=== PATIENT | female | born 1975 | race Caucasian/White ===

== ENCOUNTER 2020-10-05 15:11 | Emergency (ER) | payer MEDICAID, SELFPAY ==
[2020-10-05 16:08] VITALS: BP 145/87; PULSE 87; RESP 19; TEMP 37.2; O2SAT 100; BMI 32.6
--- NOTE | 2020-10-05 18:40 | PC.NURSE ---
PT ARRIVED TO ROOM. AT 1835
--- NOTE | 2020-10-05 18:43 | ED_ITS ---
HPI - General Adult General: Chief complaint: Medical Clearance Stated complaint: withdrawal from script meds (would not state sx) Time Seen by Provider: 10/05/20 18:40 Source: patient Mode of arrival: ambulatory Limitations: no limitations History of Present Illness: HPI narrative: 45-year-old female states she had a 15-year history of opioid abuse. She states she is on Suboxone for her withdrawal symptoms. States she ran out on Wednesday and cannot see her primary care doctor till Wednesday and states she has been starting to feel worse. She states that she just feels like she needs her Suboxone refilled. She had no vomiting or diarrhea. Her vitals here are all normal. Associated symptoms: Deny chest pain, dyspnea, headache(s), nausea, rash or vomiting Review of Systems Const: Denies: fever(s), chills, body aches or change in appetite Eyes: Denies: blurry vision or eye discomfort ENMT: Denies: throat pain or dental pain Card: Denies: chest pain Resp: Denies: dyspnea GI: Denies: abdominal pain, nausea, vomiting or diarrhea : Denies: dysuria Musc: Denies: neck pain or back pain Skin/Breast: Denies: rash Neuro: Denies: headache(s) Psych: Denies: depression Mehrdad/Lymph: Denies: easy bruising All/Imm: Denies: urticaria Physical Exam Const: COMMON NORMALS: no acute distress, patient oriented x3 and healthy appearing HENMT: COMMON NORMALS: normocephalic and atraumatic HEAD & SCALP: normocephalic and atraumatic Eye: COMMON NORMALS: Equal, round and reactive pupils present and EOMs intact bilaterally PUPIL: Yes Equal, round and reactive pupils present Neck/C-Spine: COMMON NORMALS: full ROM and supple Chest: COMMONS NORMALS: normal inspection of the chest and normal palpation of entire chest wall Resp: COMMON NORMALS: normal respiratory effort, No retractions, No use of accessory muscles and clear to auscultation bilaterally AUSCULTATION: clear to auscultation bilaterally Cardio: COMMON NORMALS: regular rate, regular rhythm and No murmurs present (Cardio) RATE: regular rate RHYTHM: regular rhythm GI: COMMON NORMALS: Normal to inspection, nondistended, normoactive bowel sounds present, Soft to palpation, non-tender and no masses PALPATION: Yes Soft to palpation Extremity: COMMON NORMALS: normal to inspection and full ROM Neuro: COMMON NORMALS: patient oriented x3, moves all extremities and no focal motor deficits Psych: COMMON NORMALS: mental status grossly normal, Normal thought process present and cooperative THOUGHT PROCESS: Normal thought process present Skin: COMMON NORMALS: no rashes or lesions noted and no wounds GENERAL SKIN EXAM: no rashes or lesions noted Course Vital Signs: Vital signs: Vital Signs Temperature 99.0 F 10/05/20 16:08 Pulse Rate 87 10/05/20 16:08 Respiratory Rate 19 H 10/05/20 16:08 Blood Pressure 145/87 10/05/20 16:08 Pulse Oximetry 100 10/05/20 16:08 MDM - General Adult MDM Narrative: Medical decision making narrative: Patient presents here with needing a refill. Patient is well-appearing here and is no signs of serious withdrawal symptoms. We will give her Suboxone here in 1 week supply until she gets into see her PCP. She is return if worsening. Discharge Plan Discharge Patient Disposition: Home Clinical Impression: Medication refill, Opioid withdrawal Condition: Stable Prescriptions: New Suboxone 2-0.5 mg film 1 film buccal DAILY Qty: 7 RF: 0 Discharge Orders: Discharge ED (Routine); Ordered 10/05/20 Ordered By: Yolanda Conklin Referrals: Maria Raymundo [Primary Care Provider] - Discharge Diet: Advance as tolerated Discharge Activity: Resume usual activity Patient Instructions: Opioid Withdrawal (ED) Coding Level of Care Code ED Natural Resource Manager for Shonna Fwd Exam Comprehensive
[2020-10-05 18:56] VITALS: BP 134/92; PULSE 97; RESP 16; O2SAT 96
[2020-10-05] MEDS: buprenorphine-naloxone 4-1 mg Film 1 EACH SUBLINGUAL (19:11)
[2020-10-05 19:14] VITALS: BP 145/97; PULSE 97; RESP 16; TEMP 37.2; O2SAT 96
== END 2020-10-05 19:17 | disposition home or self-care (01) ==
PROVIDERS: Emergency Provider Emergency Medicine; PCP Internal Medicine
DX: Z76.0 Encounter for issue of repeat prescription (principal); F11.23 Opioid dependence with withdrawal
CPT/HCPCS: 99283; J0573

== ENCOUNTER 2020-10-06 18:47 | Emergency (ER) | payer MEDICAID, SELFPAY ==
[2020-10-06 19:01] VITALS: BP 145/84; PULSE 99; RESP 18; TEMP 37.2; BMI 32.6
--- NOTE | 2020-10-06 19:40 | ED_ITS ---
HPI - General Adult General: Chief complaint: General Medical Stated complaint: WITHDRAWAL SX: UNABLE TO GET SCRIPT FILLED Time Seen by Provider: 10/06/20 19:40 History of Present Illness: HPI narrative: 45-year-old female comes in today for concerns of inability to refill Suboxone prescription. Patient states that she took the prescription to the pharmacy today but due to X number not being provided for the physician she was unable to get the prescription refilled. I do understand that an executive order had been placed by President Vesta that had denied refills of Suboxone from the emergency department which may be hampering the refill of the prescription. Patient will try to contact her primary care provider tomorrow for further refills. Review of Systems General: Reports: 10 or more systems reviewed and unremarkable except in HPI and below Psych: Reports: other (Opioid withdrawal, increased anxiety) Physical Exam Const: COMMON NORMALS: no acute distress and patient oriented x3 GENERAL APPEARANCE: cooperative HENMT: COMMON NORMALS: normocephalic and Normal external nose present HEAD & SCALP: normal to inspection and normocephalic NOSE: Normal external nose present MOUTH: Normal oral and palatal mucosa present Eye: GENERAL EYE: appearance normal, both eyes and all related structures Neck/C-Spine: COMMON NORMALS: full ROM Lymph: LYMPHATIC: no lymphadenopathy noted Chest: COMMONS NORMALS: normal inspection of the chest Resp: COMMON NORMALS: normal respiratory effort EFFORT & INSPECTION: Yes able to speak in complete sentences Cardio: COMMON NORMALS: regular rate and regular rhythm RATE: regular rate RHYTHM: regular rhythm GI: COMMON NORMALS: non-tender Extremity: COMMON NORMALS: normal to inspection Neuro: COMMON NORMALS: patient oriented x3 and moves all extremities Psych: COMMON NORMALS: mental status grossly normal and cooperative Skin: COMMON NORMALS: no rashes or lesions noted GENERAL SKIN EXAM: no rashes or lesions noted Course Vital Signs: Vital signs: Vital Signs Temperature 99 F 10/06/20 19:01 Pulse Rate 99 10/06/20 19:01 Respiratory Rate 18 10/06/20 19:01 Blood Pressure 145/84 10/06/20 19:01 MDM - General Adult MDM Narrative: Medical decision making narrative: Patient was unable to get her prescription refilled today due to an x number being provided for the prescriber of the refill. Exam is normal except for some mild anxiety. Vital signs are normal. Differential diagnosis includes opioid withdrawal, anxiety, malingering. Patient was given 1 dose of Suboxone from the emergency department. Recommended follow-up with her primary care provider that prescribes her medication tomorrow. Patient states that she does have di fficulty because he is only there every Wednesday. I did encourage her still to contact the office, but I also placed a case management referral to assist patient tomorrow. Patient reported understanding agreed to plan. Discharge Plan Discharge Patient Disposition: Home Clinical Impression: Opioid withdrawal Condition: Stable Prescriptions: No Action Suboxone 2-0.5 mg film 1 film buccal DAILY Qty: 7 RF: 0 Discharge Orders: Discharge ED (Routine); Ordered 10/06/20 Ordered By: Lance Jimenez Referrals: Maria Raymundo [Primary Care Provider] - Discharge Diet: Usual diet Discharge Activity: Increase activity as tolerated Patient Instructions: Opioid Withdrawal (ED), Opioid Safety Activity Restrictions/Additional Instructions: Contact your primary provider tomorrow. I did place a case management referral to help with may be any assistance if you are unable to get your provided for refill tomorrow. Return to the ER for new concerns. Coding Level of Care Code ED Senior C Web Developer for Shonna Quiroz
[2020-10-06] MEDS: buprenorphine-naloxone 4-1 mg Film 1 EACH SUBLINGUAL (20:10)
[2020-10-06 20:12] VITALS: PULSE 78; RESP 18; O2SAT 99
--- NOTE | 2020-10-07 15:48 | DCPLANNER ---
teller manager had message to speak with patient about getting her suboxone refilled. teller manager called [phone], this number is disconnected or is no longer in service. teller manager was going to give patient the phone number to [facility] [phone]. teller manager unable to speak with patient or leave a voicemail for patient.
== END 2020-10-06 20:13 | disposition home or self-care (01) ==
PROVIDERS: Emergency Provider Nurse Practitioner Family; PCP Internal Medicine
DX: F11.23 Opioid dependence with withdrawal (principal)
CPT/HCPCS: 99282; J0573

== ENCOUNTER 2020-10-09 15:38 | Emergency (ER) | payer MEDICAID, SELFPAY ==
[2020-10-09 18:04] VITALS: BP 133/84; PULSE 71; RESP 18; TEMP 37.1; O2SAT 99; BMI 32.6
--- NOTE | 2020-10-09 21:56 | ED_ITS ---
HPI - General Adult General: Chief complaint: General Medical Stated complaint: STILL HAVING W/D SYMPTOMS-CAN'T GET HELP TIL WED. Time Seen by Provider: 10/09/20 21:52 History of Present Illness: HPI narrative: This patient is a 45-year-old female who presents to the emergency department requesting Suboxone. Patient states she is been on Suboxone therapy for about 2 months and did take a couple extra pills because she felt like she was withdrawing. Patient was here Wednesday for the same complaint and was given a dose of Suboxone. Patient has not had a prescription. States has had some diarrhea for the past 2 days. Patient does not appear to be in acute discomfort and normal vital signs. I did discuss length with patient options and asked him why she did not follow-up with her primary care chronic pain doctor. Patient states that she has an appointment on Wednesday which is in 2 days. Vital signs 133/84 pulse of 74 respirations 18 temperature 98.8 O2 sat 99% on room air and again the patient does not appear to be acutely sick. I did advise the patient that I could not offer any narcotic medications and advised that I would offer a full medical screening exam including IV fluids and nausea medication if needed for some other cause for her diarrhea and drug use other alternatives to make her feel more comfortable. Patient declines any further medical evaluation wishes to be discharged from ER. Patient be discharged per her request Onset (ago): day(s) Associated symptoms: Deny chest pain, dyspnea, headache(s), nausea, rash, palpitations or vomiting Review of Systems General: Reports: 10 or more systems reviewed and unremarkable except in HPI and below Const: Denies: fever(s), chills, body aches or fatigue Eyes: Denies: change in vision or blurry vision ENMT: Denies: throat pain, hoarseness or mouth pain Card: Denies: chest pain, palpitations, irregular heart rhythm, edema, swelling of feet/ankles or lightheadedness Resp: Denies: dyspnea, productive cough, non-productive cough, wheezing or pain on inspiration GI: Reports: diarrhea; Denies: abdominal pain, nausea or vomiting : Denies: flank pain, difficulty voiding, dysuria, urinary frequency, urinary urgency or urinary hesitancy Musc: Denies: neck pain, back pain, extremity pain, extremity swelling, joint pain, joint swelling, joint redness, joint warmth or limited range of motion Skin/Breast: Denies: rash, pruritus, erythema or skin tenderness Neuro: Denies: headache(s), numbness in extremities or weakness in extremities Psych: Denies: anxiety or depression Physical Exam Const: COMMON NORMALS: no acute distress, average body habitus, patient oriented x3, no limitations, healthy appearing, alert and well nourished HENMT: COMMON NORMALS: normocephalic, atraumatic, hearing grossly normal bilaterally, external ears normal, EAC's normal, TM's normal bilaterally, Normal external nose present, Normal nasal mucous membranes and turbinates present, moist oral mucous membranes, oropharynx normal, dentition normal and gingiva normal HEAD & SCALP: normocephalic and atraumatic NOSE: Normal external nose present and Normal nasal mucous membranes and turbinates present EXTERNAL EAR: Yes external ears normal EXTERNAL AUDITORY CANAL: EAC's normal TYMPANIC MEMBRANE: TM's normal bilaterally Neck/C-Spine: COMMON NORMALS: full ROM, no lymphadenopathy, supple, no meningeal signs, no JVD, Thyroid normal and No carotid bruits THYROID: Thyroid normal Chest: COMMONS NORMALS: normal inspection of the chest, normal palpation of entire chest wall, normal inspection of the breasts and normal palpation of the breasts Breast/axilla inspection: Yes normal inspection of the breasts BREAST/AXILLA PALPATION: Yes normal palpation of the breasts Resp: COMMON NORMALS: normal respiratory effort, No retractions, No use of accessory muscles, clear to auscultation bilaterally and percussion normal AUSCULTATION: clear to auscultation bilaterally PERCUSSION: percussion normal Cardio: COMMON NORMALS: no JVD, regular rate, regular rhythm, S1 normal heart sound present, S2 normal heart sound present, No gallops present (Cardio), No clicks present (Cardio), No murmurs present (Cardio), No rub (Cardio) and Peripheral pulses 2+ throughout RATE: regular rate RHYTHM: regular rhythm HEART SOUNDS: S1 normal heart sound present and S2 normal heart sound present PERIPHERAL PULSES: Peripheral pulses 2+ throughout GI: COMMON NORMALS: Normal to inspection, nondistended, normoactive bowel sounds present, Soft to palpation, non-tender, No hepatosplenomegaly present, no masses and no bruits PALPATION: Yes Soft to palpation and Yes No hepatosplenomegaly present Back/Pelvis: COMMON NORMALS: thoracic and lumbar spine normal to inspection, no thoracic nor lumbar tenderness, thoraco-lumbar ROM normal and straight leg raise negative bilaterally Extremity: COMMON NORMALS: normal to inspection, full ROM, capillary refill normal, no joint enlargement, no clubbing, cyanosis or edema, no calf tenderness and no pedal edema Neuro: COMMON NORMALS: patient oriented x3 SENSORIUM/ORIENTATION: Yes alert MENINGEAL SIGNS: Yes no meningeal signs Course Vital Signs: Vital signs: Vital Signs Temperature 98.8 F 10/09/20 18:04 Pulse Rate 71 10/09/20 18:04 Respiratory Rate 18 10/09/20 18:04 Blood Pressure 133/84 10/09/20 18:04 Pulse Oximetry 99 10/09/20 18:04 MDM - General Adult MDM Narrative: Medical decision making narrative: his patient is a 45-year-old female who presents to the emergency department requesting Suboxone. Patient states she is been on Suboxone therapy for about 2 months and did take a couple extra pills because she felt like she was withdrawing. Patient was here Wednesday for the same complaint and was given a dose of Suboxone. Patient has not had a prescription. States has had some diarrhea for the past 2 days. Patient does not appear to be in acute discomfort and normal vital signs. I did discuss length with patient options and asked him why she did not follow-up with her primary care chronic pain doctor. Patient states that she has an appointment on Wednesday which is in 2 days. Vital signs 133/84 pulse of 74 respirations 18 temperature 98.8 O2 sat 99% on room air and again the patient does not appear to be acutely sick. I did advise the patient that I could not offer any narcotic medications and advised that I would offer a full medical screening exam inc luding IV fluids and nausea medication if needed for some other cause for her diarrhea and drug use other alternatives to make her feel more comfortable. Patient declines any further medical evaluation wishes to be discharged from ER. Patient be discharged per her request Discharge Plan Discharge Patient Disposition: Home Clinical Impression: Encounter for medical screening examination Condition: Stable Prescriptions: No Action Suboxone 2-0.5 mg film 1 film buccal DAILY Qty: 7 RF: 0 Discharge Orders: Discharge ED (Routine); Ordered 10/09/20 Ordered By: Choco Harris Referrals: Maria Raymundo [Primary Care Provider] - Discharge Diet: Advance as tolerated Discharge Activity: Resume usual activity Patient Instructions: Opioid Safety Activity Restrictions/Additional Instructions: You must follow-up with your chronic pain management doctor for any refills of your medications. May take [id number] Pepto-Bismol as needed does help with diarrhea. Coding Level of Care Code ED Jigger Crown Pouncing Machine Operator for Shonna Quiroz
[2020-10-09 22:07] VITALS: BP 148/96; PULSE 87; RESP 18; O2SAT 100
== END 2020-10-09 22:09 | disposition home or self-care (01) ==
PROVIDERS: Emergency Provider Emergency Medicine; PCP Internal Medicine
DX: Z00.00 Encounter for general adult medical examination without abnormal findings (principal)
CPT/HCPCS: 99281

== ENCOUNTER → 2022-02-16 16:27 | Outpatient (BNVA) | payer MEDICAID, SELFPAY | PROVIDERS: PCP Family Medicine; Visit Provider Family Medicine | DX: Z76.89 Persons encountering health services in other specified circumstances (principal); Z11.4 Encounter for screening for human immunodeficiency virus [HIV]; Z11.59 Encounter for screening for other viral diseases | CPT/HCPCS: 80053; 80061; 84443; 85025; 86803; 87806 ==

== ENCOUNTER 2023-02-11 08:23 | Emergency (ER) | payer MEDICAID, SELFPAY ==
[2023-02-11 08:28] VITALS: BMI 31.9
--- NOTE | 2023-02-11 08:28 | ED_ITS ---
HPI - Chest Pain 2 General: Chief Complaint: Chest Pain Stated Complaint: chest pain, dizzy Time Seen by Provider: 02/11/23 08:28 Source: patient Mode of arrival: ambulatory History of Present Illness: 47-year-old female presents emergency ro om complaining of chest pain and dizziness. She had viral-like illness with a moderately productive cough of thick yellow mucus for last couple of days. She has some chest discomfort and dizziness MD complaint: chest pain Onset (ago): day(s) (2) Prior episodes: Yes Onset: during rest Pain location: substernal Pain radiation: none Severity: moderate Quality: aching and heaviness Relieving factors: nothing Exacerbating factors: nothing Associated symptoms: Deny abdominal pain, dyspnea or fever(s) Review of Systems 2 Const: Denies: fever(s) or chills Card: Denies: chest pain Resp: Denies: dyspnea GI: Denies: abdominal pain : Denies: dysuria, urinary frequency or urinary urgency Musc: Denies: neck pain or back pain Skin/Breast: Denies: rash PFSH ED 2 PFSH: Family History Father Hypertension Social History Smoking and tobacco/nicotine status: current every day tobacco/nicotine user cigarettes Alcohol intake: former Year of sobriety/quit date alcohol: 1 Substance/Drug Use: former Adopted: No Lives independently: No Marital status: Life Partner Number of children: 3 service: No Current occupational status: unemployed Current occupational exposures/hazards: No Do you think of yourself as: Straight/Heterosexual Current gender identity: Female Female Reproductive History: Spontaneous abortions: No Physical Exam 2 Const: COMMON NORMALS: no acute distress GENERAL APPEARANCE: cooperative and comfortable ORIENTATION/CONSCIOUSNESS: Yes awake, Yes oriented to person, Yes oriented to place and Yes oriented to time HENMT: COMMON NORMALS: normocephalic, atraumatic and hearing grossly normal bilaterally HEAD & SCALP: normocephalic and atraumatic Resp: COMMON NORMALS: normal respiratory effort, No retractions, No use of accessory muscles and clear to auscultation bilaterally AUSCULTATION: clear to auscultation bilaterally Cardio: COMMON NORMALS: regular rate, regular rhythm and No murmurs present (Cardio) RATE: regular rate RHYTHM: regular rhythm GI: COMMON NORMALS: Soft to palpation and No hepatosplenomegaly present A USCULTATION: Yes normoactive bowel sounds PALPATION: Yes Soft to palpation, No Tenderness to palpation present (GI), No Guarding due to palpation present (GI) and Yes No hepatosplenomegaly present Extremity: COMMON NORMALS: normal to inspection, capillary refill normal, no clubbing, cyanosis or edema, no calf tenderness and no pedal edema Neuro: SENSORIUM/ORIENTATION: Yes oriented to person, Yes oriented to place and Yes oriented to time Skin: COMMON NORMALS: no rashes or lesions noted GENERAL SKIN EXAM: no rashes or lesions noted Course 2 Vital Signs: Vital signs: Vital Signs Temperature 98.7 F 02/11/23 08:32 Pulse Rate 64 02/11/23 10:48 Respiratory Rate 18 02/11/23 10:48 Blood Pressure 122/86 02/11/23 10:48 Pulse Oximetry 94 02/11/23 10:48 Oxygen Delivery Me thod Room Air 02/11/23 10:48 MDM - Chest Pain Medical Decision Making Labs and imaging reviewed no significant findings EKG did not show any acute ST changes. Cardiac enzymes are negative. I suspect this is more GI in nature we will set her up for an outpatient stress test have her take aspirin daily started on pantoprazole 40 mg daily recheck if not improving or worsening change symptoms Medical Records I reviewed the patient's medical records. Lab Data I reviewed the patient's lab results. 02/11/23 08:32 02/11/23 08:32 Laboratory Results WBC 5.29 10^3/uL (3.29-11.43) 02/11/23 08:32 RBC 4.58 10^6/uL (3.85-5.65) 02/11/23 08:32 Hgb 13.80 g/dL (11.27-16.99) 02/11/23 08:32 Hct 42.1 % (36-47) 02/11/23 08:32 MCV 91.9 fl (85-98) 02/11/23 08:32 MCH 30.1 pg (27-33) 02/11/23 08:32 MCHC 32.8 g/dL (30-55) 02/11/23 08:32 RDW 12.7 % (12.1-15.1) 02/11/23 08:32 Plt Count 288 10^3/cmm (157-399) 02/11/23 08:32 MPV 9.1 fL (7.4-10.4) 02/11/23 08:32 Neut % (Auto) 44.4 % 02/11/23 08:32 Lymph % (Auto) 45.0 % 02/11/23 08:32 [place] % (Auto) 8.5 % 02/11/23 08:32 Eos % (Auto) 1.7 % 02/11/23 08:32 Baso % (Auto) 0.2 % 02/11/23 08:32 Neut # (Auto) 2.35 10^3/uL (1.8-7.7) 02/11/23 08:32 Lymph # (Auto) 2.4 10^3/uL (0.8-4.8) 02/11/23 08:32 [place] # (Auto) 0.5 10^3/uL (0.2-0.9) 02/11/23 08:32 Eos # (Auto) 0.1 10^3/uL (0.0-0.8) 02/11/23 08:32 Baso # (Auto) 0.0 10^3/uL (0.0-0.1) 02/11/23 08:32 Nucleated RBC % (auto) 0 % 02/11/23 08:32 Nucleated RBCs # 0.0 /100WBC 02/11/23 08:32 Sodium 140 mmol/L (136-145) 02/11/23 08:32 Potassium 3.7 mmol/L (3.5-5.1) 02/11/23 08:32 Chloride 98 mmol/L (98-107) 02/11/23 08:32 Carbon Dioxide 31 mmol/L (22-29) H 02/11/23 08:32 Anion Gap 14.7 (5-19) 02/11/23 08:32 BUN 16 mg/dL (6-20) 02/11/23 08:32 Creatinine 0.6 mg/dL (0.5-0.9) 02/11/23 08:32 GFR Calculation 108.1 mL/min (90-130) 02/11/23 08:32 Glucose 105 mg/dL (65-115) 02/11/23 08:32 Calculated Osmolality 292 mOsm/kg (285-295) 02/11/23 08:32 Calcium 9.0 mg/dL (8.5-10.5) 02/11/23 08:32 Total Bilirubin 0.4 mg/dL (0.15-1.2) 02/11/23 08:32 AST 23 U/L (0-32) 02/11/23 08:32 ALT 30 U/L (0-33) 02/11/23 08:32 Alkaline Phosphatase 88 U/L (35-105) 02/11/23 08:32 Troponin T Baseline < 6 ng/L (0-10) 02/11/23 08:32 Troponin T 120 Minute 6.00 ng/L (0-10) 02/11/23 10:20 Delta Troponin T 0.98663 ABS# (0-10) 02/11/23 10:20 Total Protein 6.6 g/dL (6.6-8.7) 02/11/23 08:32 Albumin 4.3 g/dL (3.5-5.2) 02/11/23 08:32 Globulin 2.3 g/dL (1.3-4.6) 02/11/23 08:32 Lipase 23 U/L (13-60) 02/11/23 08:32 All radiology interpretation(s) finalized by discharge Discharge Plan Discharge Patient Disposition: Home Clinical Impression: Atypical chest pain, GERD (gastroesophageal reflux disease) Condition: Stable Prescriptions: New aspirin 81 mg tablet,delayed release (DR/EC) 81 mg PO DAILY Qty: 30 0RF pantoprazole 40 mg tablet,delayed release (DR/EC) 40 mg PO DAILY 56 Days Qty: 60 0RF No Action fluoxetine 40 mg capsule 40 mg PO DAILY albuterol sulfate [ProAir HFA] 90 mcg/actuation HFA aerosol inhaler 2 puff inhalation Q6H PRN (Reason: shortness of breath or wheezing) Qty: 8.5 6RF Suboxone 8-2 mg Tablet, Sublingual 0.5 tab SUBLINGUAL BID Wellbutrin XL 150 mg Tablet Extended Release 24 Hr 150 mg PO QAM Discharge Orders: Discharge ED (Routine); Ordered 02/11/23 Ordered By: Roscoe Dejesus Referrals: Barbara,Zenon W, DO [Primary Care Provider] - Discharge Diet: Usual diet Discharge Activity: Increase activity as tolerated Patient Instructions: Opioid Safety, Pain Management Activity Restrictions/Additional Instructions: Thank you for choosing [facility] for your healthcare needs today. Please realize this is an emergency room and that we are providing you with a medical screening exam and this may not be complete and all inclusive of all the testing and or work up that you may need to determine your ailment or severity of your illness. It is very important that you follow up as instructed or that you return to the Emergency Department should you have concerns or if your condition changes or worsens in any way. You are seen today for chest pain. Your EKG does not show any acute changes and your heart enzymes were normal. Your description of your symptoms was slightly more suggestive of gastric source of the discomfort. Recommend to start on Protonix 40 mg daily aspirin 81 mg daily. We will set you up for an outpatient Lexiscan sestamibi stress test to evaluate further. Coding Level of Care Code ED Wind Turbine Controls Engineer for Shonna Quiroz
[2023-02-11 08:32] VITALS: BP 139/93; PULSE 68; RESP 16; TEMP 37.1; O2SAT 98
--- NOTE | 2023-02-11 08:57 | ECG_ITS ---
[facility] Test Date: 2023-02-11 Pat Name: Keila Barahona Department: Room: Gender: Female Shuffle Board Operator: : 1975 Requested By: Roscoe Krause Order Number: [id number] Jian MD: Marianne Haley M.D. Measurements Intervals [place] Rate: 67 P: 49 ME: 146 QRS: 66 QRSD: 91 T: 42 QT: 411 QTc: 434 Interpretive Statements SINUS RHYTHM Normal EKG No previous ECG available for comparison Electronically Signed On 02-11-2023 16:35:22 PSYCHIATRIC ASSISTANT by Marianne Haley M.D. [id number]
--- NOTE | 2023-02-11 08:57 | XR_ITS ---
WS: [id number] Portable AP upright chest, 02/11/2023 Clinical Data: chest pain Comparison: None. Findings: No nodules, masses or effusions are seen. The heart is normal. The pulmonary vascularity is not increased. No pneumonia or pneumothorax is seen. Monitor leads are on the chest wall. Impression: Negative chest.
[2023-02-11 09:03] LABS: Basophils % 0.2 %; Eosinophils # 0.1 10^3/uL (0.0-0.8); Eosinophils % 1.7 %; Hematocrit 42.1 % (36-47); Lymphocytes # 2.4 10^3/uL (0.8-4.8); Mean Corpuscular HGB Conc 32.8 g/dL (30-55); Mean Corpuscular Hemoglobin 30.1 pg (27-33); Mean Corpuscular Volume 91.9 fl (85-98); Mean Platelet Volume 9.1 fL (7.4-10.4); Monocytes # 0.5 10^3/uL (0.2-0.9); Monocytes % 8.5 %; Neutrophils # 2.35 10^3/uL (1.8-7.7); Neutrophils % 44.4 %; Nucleated Red Blood Cells % 0 %; Platelet Count 288 10^3/cmm (157-399); Red Blood Count 4.58 10^6/uL (3.85-5.65); Red Cell Distribution Width 12.7 % (12.1-15.1); White Blood Count 5.29 10^3/uL (3.29-11.43)
[2023-02-11 09:25] LABS: Alanine Aminotransferase 30 U/L (0-33); Albumin Level 4.3 g/dL (3.5-5.2); Alkaline Phosphatase 88 U/L (35-105); Aspartate Amino Transferase 23 U/L (0-32); Blood Urea Nitrogen 16 mg/dL (6-20); Carbon Dioxide 31 mmol/L (22-29); Chloride 98 mmol/L (98-107); Globulin 2.3 g/dL (1.3-4.6); Glomerular Filtration Rate 108.1 mL/min (90-130); Glucose 105 mg/dL (65-115); Lipase 23 U/L (13-60); Osmolality Calculated 292 mOsm/kg (285-295); Sodium 140 mmol/L (136-145); Total Bilirubin 0.4 mg/dL (0.15-1.2); Total Protein 6.6 g/dL (6.6-8.7)
[2023-02-11 09:26] LABS: Troponin(5th) Baseline < 6 ng/L (0-10)
[2023-02-11 09:29] LABS: Anion Gap 14.7 (5-19); Potassium 3.7 mmol/L (3.5-5.1)
[2023-02-11 10:44] LABS: Troponin 5 2HR Delta 0.00001 ABS# (0-10)
[2023-02-11 10:48] VITALS: BP 122/86; PULSE 64; RESP 18; O2SAT 94
== END 2023-02-11 11:38 | disposition home or self-care (01) ==
PROVIDERS: Emergency Provider Family Medicine; PCP Family Medicine
DX: R07.89 Other chest pain (principal); K21.9 Gastro-esophageal reflux disease without esophagitis; F17.210 Nicotine dependence, cigarettes, uncomplicated
CPT/HCPCS: 36415; 71045; 80053; 83690; 84484; 85025; 93005; 99285

== ENCOUNTER 2023-04-21 16:51 | Emergency (ER) | payer MEDICAID, SELFPAY ==
[2023-04-21 16:54] VITALS: BP 168/106; PULSE 81; RESP 16; O2SAT 100
--- NOTE | 2023-04-21 17:22 | ED_ITS ---
HPI - Animal Bite General: Chief Complaint: Animal Bite Stated Complaint: cat bite Time Seen by Provider: 04/21/23 17:21 History of Present Illness: Patient comes in today for a bite to the right hand by a feral cat. The cat has been bit by another animal and patient was trying to help but when it bit her on the right hand. Patient appears nontoxic. Patient does have some redness and swelling to the proximal phalanx and the MCP joint of the index finger. Review of Systems General: Reports: 10 or more systems reviewed and unremarkable except in HPI and below PFSH ED PFSH: Family History Father Hypertension Social History Smoking and tobacco/nicotine status: current every day tobacco/nicotine user cigarettes Alcohol intake: former Year of sobriety/quit date alcohol: 1 Substance/Drug Use: former Adopted: No Lives independently: No Marital status: Life Partner Number of children: 3 service: No Current occupational status: unemployed Current occupational exposures/hazards: No Do you think of yourself as: Straight/Heterosexual Current gender identity: Female Female Reproductive History: Spontaneous abortions: No Physical Exam Const: COMMON NORMALS: alert HENMT: COMMON NORMALS: normocephalic HEAD & SCALP: normocephalic Neck/C-Spine: COMMON NORMALS: full ROM Resp: COMMON NORMALS: normal respiratory effort and clear to auscultation bilaterally AUSCULTATION: clear to auscultation bilaterally Cardio: COMMON NORMALS: regular rate and regular rhythm RATE: regular rate RHYTHM: regular rhythm GI: COMMON NORMALS: Soft to palpation and non-tender PALPATION: Yes Soft to palpation Back/Pelvis: COMMON NORMALS: thoracic and lumbar spine normal to inspection Extremity: COMMON NORMALS: capillary refill normal Neuro: SENSORIUM/ORIENTATION: Yes alert Skin: COMMON NORMALS: no rashes or lesions noted GENERAL SKIN EXAM: no rashes or lesions noted Course Vital Signs: Vital signs: Vital Signs Pulse Rate 81 04/21/23 16:54 Respiratory Rate 16 04/21/23 16:54 Blood Pressure 168/106 04/21/23 16:54 Pulse Oximetry 100 04/21/23 16:54 Oxygen Delivery Me thod Room Air 04/21/23 16:54 MDM - Animal Bite Medical Decision Making 48-year-old female comes in today with a bite injury to the right hand index finger. Patient has some swelling and redness to the proximal phalanx and the MCP joint area. Wound appears to the proximal phalanx. Wound does not appear going into the joint spacing. Patient has good range of motion of the finger. Vital signs are stable. Differential diagnosis includes but not limited to need for prophylaxis antibiotic, need for prophylaxis tetanus, need for prophylaxis rabies, bite injury to the hand. Reviewed exam with patient and recommendations for treatment. Patient opted for updating her tetanus and rabies vaccine series for postexposure. Patient will be given 1 g Rocephin and kept on Augmentin. Patient was recommended to follow-up with primary care or return to the ER for worsening symptoms. XR interpretation done by ED provider, pending radiology final review Discharge Plan Discharge Patient Disposition: Home Clinical Impression: Cat bite Qualifiers: Encounter type: initial encounter Qualified Code(s): W55.01XA - Bitten by cat, initial encounter Condition: Stable Prescriptions: New amoxicillin-pot clavulanate 875-125 mg tablet 1 tab PO Q8H Qty: 20 0RF No Action fluoxetine 40 mg capsule 40 mg PO DAILY albuterol sulfate [ProAir HFA] 90 mcg/actuation HFA aerosol inhaler 2 puff inhalation Q6H PRN (Reason: shortness of breath or wheezing) Qty: 8.5 6RF Suboxone 8-2 mg Tablet, Sublingual 0.5 tab SUBLINGUAL BID Wellbutrin XL 150 mg Tablet Extended Release 24 Hr 150 mg PO QAM aspirin 81 mg tablet,delayed release (DR/EC) 81 mg PO DAILY Qty: 30 0RF Discharge Orders: Discharge ED (Routine); Ordered 04/21/23 Ordered By: Lance Jimenez Referrals: Zenon Jimenez DO [Primary Care Provider] - Discharge Diet: Usual diet Patient Instructions: Rabies (ED) Activity Restrictions/Additional Instructions: You will need to follow-up on days 3, 7, and 14 to complete the rabies vaccine series. At that time you will only get 1 shot. Take oral antibiotic 3 times a day for prophylaxis antibiotic therapy of the bite wound. Monitor for increasing swelling, redness, and pain. Return to the ER for worsening symptoms including high fever, and inability to hold fluids down. Follow-up with primary care in 3 to 5 days for recheck. Coding Level of Care Code ED Product Development Manager for Shonna Quiroz
--- NOTE | 2023-04-21 17:41 | XRR_ITS ---
PROCEDURE INFORMATION: Exam: XR Left Hand Exam date and time: 04/21/2023 6:08 PM Age: 48 years old Clinical indication: Injury or trauma; Other: Animal bite; Hand; Left; Injury details: Bite by a cat; Additional info: Bite wound TECHNIQUE: Imaging protocol: Radiologic exam of the left hand. Views: 3 or more views. COMPARISON: No relevant prior studies available. FINDINGS: Bones/joints: No fracture identified. Soft tissues: Soft tissue swelling along the dorsal aspect of the distal hand. XR/XR hand LT min 3V* [id number] IMPRESSION: 1. Soft tissue swelling along the dorsal aspect of the distal hand. 2. No fracture identified.
[2023-04-21] MEDS: cefTRIAXone 1,000 MG in water for injection-sterile 2.1 ML 1 MG IM (17:51)
[2023-04-21] MEDS: tetanus-dipt-pertussis 0.5 mL SDV IM (17:52)
[2023-04-21] MEDS: rabies IG 300 unit/mL SDV 1 mL 1900 UNIT INFILTRATI (18:02)
[2023-04-21] MEDS: rabies vaccine 2.5 unit SDV IM (18:15)
[2023-04-21 18:35] VITALS: BP 148/88; PULSE 89; RESP 16; O2SAT 97
== END 2023-04-21 18:35 | disposition home or self-care (01) ==
PROVIDERS: Emergency Provider Nurse Practitioner Family; PCP Family Medicine
DX: S61.452A Open bite of left hand, initial encounter (principal); W55.01XA Bitten by cat, initial encounter; Z79.82 Long term (current) use of aspirin; F17.210 Nicotine dependence, cigarettes, uncomplicated; Z23 Encounter for immunization; Z20.3 Contact with and (suspected) exposure to rabies; Z29.14 Encounter for prophylactic rabies immune globulin
CPT/HCPCS: 73130; 90375; 90471; 90675; 90715; 96372; 99284; J0696

== ENCOUNTER 2024-11-21 17:04 | Emergency (ER) | payer SELFPAY ==
--- OUTSIDE RECORDS SUMMARY | 2012-05-11 11:20 | XMS_ITS | Continuity of Care Document ---
Author Organization [employer] Address [address] [place] [address] Phone Care Team Providers Care Industrial Training Specialist Name Role Phone [facility] Unavailable Unavailable Allergies, Adverse Reactions, Alerts Substance Reaction Status Criticality No Known Allergies Active No Inform ation Medications Medication Instructions Dosage Effective Dates (start - stop) Status Comments Vicodin 5 mg-500 mg tablet take 1 tablet by oral route every 4 - 6 hours as needed for pain - Active Robaxin-750 750 mg tablet take 2ablet (1500MG) by oral route every 8 hours PRN - Active Ultram 50 mg Tab take 1 tablet (50MG) by oral route every 6 hours as needed - Active Robaxin-750 750 mg Tab take 1 tablet (750MG) by oral route every 4 hours - Active Procedures Procedure Date AMNT PAIN NOTED PAIN PRSNT X-ray exam of knee, 3 views Office/outpatient visit,est, mod 2012 X-ray exam lower spine 2-3 views 2011 Toradol Per 15mg Office/outpatient visit,est, low 2011 Office/outpatient visit,est, low 2011 Toradol Per 15mg Office/outpatient visit,est, mod 2011 Toradol Per 15mg X-ray exam of neck spine2-3 views Office/outpatient visit,est, mod 2011 Office/outpatient visit,est, low 2010 Tdap Vaccine,7yrs>, ADACEL.BOOSTRIX Void Ticket Void Ticket Office/outpatient visit,est, mod 2009 X-ray exam lower spine 2-3 views 2009 Toradol Per 15mg Office/outpatient visit,est, mod 2008 Infcts antign, streptococcus Grp A Void Ticket Office/outpatient visit,new, low 2008 X-ray exam lower spine 2-3 views 2008 Toradol Per 15mg Advance Directives Directive Yes / No Effective Date File Name Resuscitation Not Answered N/A N/A Life Support Not Answered N/A N/A Intubation Not Answered N/A N/A Antibiotics Not Answered N/A N/A IV Fluid Support Not Answered N/A N/A Tube Feed Not Answered N/A N/A Other Directive N/A N/A WARNING:The information contained in this section is historical and is provided for information only and does not constitute a legal document or any assurance that the information is still accurate. Please verify the information with the johnson of the legal document before using it for clinical purposes. Encounters Encounter Description Practice Location Reason(s) For Visit Diagnoses Date Provider Providers Copied on Encounter [facility], [address], [place], [id number], [place] tel:[phone] [facility] Radiology No Information 3 [facility]. [address] [place] [address], [facility], [place]. tel:[phone] Office/outpa tient visit,est, mod [facility], [address], [place], [place], [id number], [place] tel:[phone] [facility] Knee injuryLOWER LEG INJURY NOS 3 Jr Moore. [address] [place] [address], [address], [place]. tel:[phone] Office/outpa tient visit,est, low [facility], [address], [place], [id number], [place] tel:[phone] [facility] Lower back painBACK PAIN LOWER Feb- 3-201 2 Jared Wang. [facility] [place], [address], [place]. tel:[phone] Office/outpa tient visit,est, low [facility], [address], [place], [place], [id number], [place] tel:[phone] [facility] Back painSciatica Hoang-3 0-201 2 Zelda Colon. [facility] [place], [address], [place]. tel:[phone] Office/outpa [facility]ient visit,[facility], [facility], [address], [place], [place], [id number], [place] tel:[phone] [facility] HeadacheNeck pain May-2 6-201 2 David Del Rosarioalverto. [address] [place] [address], [address], [place]. tel:[phone] Office/outpa tient visit,est, [facility], [address], [place], [place], [id number], [place] tel:[phone] [facility] DYSPNEACervica l sprain May-0 1- 2 Jared Wang. [address] [place] [address], [address], [place]. tel:[phone] Office/outpa tient visit,[facility], [facility], [address], [place], [place], [id number], [place] tel:[phone] [facility] No Information Jun-0 3201 1 [facility]. [address] [place] [address], [address], [place]. tel:[phone] Referring Provider: Kuldip Arauz, [address] [place] [address], [address]. tel:[phone] [facility], [address], [place], [id number], [place] tel:[phone] [facility] Radiology No Information Feb- 9-201 0 [facility]. [address] [place] [address], [address], [place]. tel:[phone] [facility], [address] [place] [address], [id number], [place] tel:[phone] [facility] No Information 0 [facility]. [address] [place] [address], [address], [place]. tel:[phone] Office/outpa tient visit,est, mod [facility], [address] [place] [address], [id number], [place] tel:[phone] [facility] No Information 0 [facility]. [address] [place] [address], [address], [place]. tel:[phone] Referring Provider: Teresa Norris, [address] [place] [address], [address]. tel:[phone] Office/outpa tient visit,est, mod [facility], [address] [place] [address], [id number], [place] tel:[phone] [facility] No Information 9 [facility]. [address] [place] [address], [address], [place]. tel:[phone] Referring Provider: Thi Ames, [address] [place] [address], [address]. tel:[phone] [facility], [address] [place] [address], [id number], [place] tel:[phone] [facility] Rad[facility] No Information 9 Jared Felipe. [address] [place] [address], [address], [place]. tel:[phone] Office/outpa tient visit,new, low [facility], [address] [place] [address], [id number], [place] tel:[phone] [facility] No Information 9 Jared Felipe. [address] [place] [address], [address], [place]. tel:[phone] Family History Family Member Type Diagnosis Age At Onset No Information Payers Payer name Insurance type Covered libertarian ID Luna rome(s) [id number] Social History Type Description Quantity Date Captured Comments Alcohol Use Details Unknown Caffeine Use Details Unknown Tobacco Use Status No Information Smoking Status No Information Sex Female Chief Complaint And Reason For Visit No Information Reason For Referral Reason For Referral No Information Plan Of Treatment Date Type Action Status Referral Ordered: X-ray exam of hip, complete Right hip ordered Referral Ordered: X-ray exam lower spine 2-3 views spine, lumbar ordered History Of Present Illness Encounter Date Complaint History Of Prese nt Illness No Information Functional Status Date Functional Assessmen t No Information Instructions Date Instruction Additional Infor mation No Information Assessments Type Assessment Date No Information Patient Care Teams Name Effective Dates (start - stop) Status Members No Information
--- OUTSIDE RECORDS SUMMARY | 2019-01-03 08:45 | XMS_ITS | Continuity of Care Document ---
Author Organization [employer] Address [address] [place] [address] Phone Care Team Providers Care Cadd Manager Name Role Phone Татьяна Palmer OD Unavailable Unavailable Allergies, Adverse Reactions, Alerts Substance Reaction Status Criticality No Known Allergies Active No Inform ation Procedures Procedure Date REFRACTION EYE EXAM, NEW PATIENT [employer] frames purchases FITTING OF SPECTACLES Advance Directives Directive Yes / No Effective Date File Name No Information Encounters Encounter Description Practice Location Reason(s) For Visit Diagnoses Date Provider Providers Copied on Encounter [facility], [address], [place], [place], [id number], [place] tel:[phone] [facility] blurry vision (chief complaint) Myopia of both eyesDry eyes due to decreased tear production Estela Vaz. [address], [place], [id number], [place]. tel:[phone] Family History Family Member Type Diagnosis Age At Onset No Information Payers Payer name Insurance type Covered republican ID Authoriza tilashay(s) Vsp [id number] [facility] Managed Wrap [id number] Social History Type Description Quantity Date Captured Comments Alcohol Use Details Unknown Caffeine Use Details Unknown Tobacco Use Status Occasional cigarette smoker Smoking Status Current every day smoker Smoking Tobacco Use Details Cigarette: No Details Available Cigarette: No Details Available Sex Female Sexual Orientation Straight or heterosexual Gender Identity Female Chief Complaint And Reason For Visit From encounter dated 01/03/2019 13:45'. blurry vision (chief complaint) Reason For Referral Reason For Referral No Information History Of Present Illness Encounter Date Complaint History Of Prese nt Illness blurry vision Functional Status Date Functional Assessmen t No Information Instructions Date Instruction Additional Infor celso Impression/Plan Related to Myopi a of both eyes Impression/Plan Related to Dry e yes due to decreased tear production Assessments Type Assessment Date assessment Myopia of both eyes assessment Dry eyes due to decreased tear p roduction impression Myopia of both eyes: H52.13 impression Dry eyes due to decreased tear p roduction: H04.129 Patient Care Teams Name Effective Dates (start - stop) Status Members No Information
[2024-11-21 17:20] VITALS: BP 139/97; PULSE 87; RESP 16; TEMP 36.8; O2SAT 100; BMI 31.9
[2024-11-21 17:45] LABS: Hematocrit 42.9 % (36-47); Hemoglobin 14.00 g/dL (11.27-16.99); Mean Corpuscular HGB Conc 32.6 g/dL (30-55); Mean Corpuscular Hemoglobin 30.0 pg (27-33); Mean Corpuscular Volume 92.1 fl (85-98); Nucleated Red Blood Cells % 0 %; Platelet Count 342 10^3/cmm (157-399); Red Blood Count 4.66 10^6/uL (3.85-5.65); White Blood Count 7.41 10^3/uL (3.29-11.43)
--- NOTE | 2024-11-21 17:51 | ED_ITS ---
HPI - Abdominal Pain 2 General: Chief Complaint: Abdominal Pain Stated Complaint: black stool, abd pain Time Seen by Provider: 11/21/24 17:05 History of Present Illness: 49-year-old female presents emergency ro om with diarrhea for the last 7 to 10 days. Says she has been taking some supplemental iron. She has diffuse abdominal cramping at times. No nausea or vomiting. No fevers. No recent antibiotics. Related Data Home Medications ?Medication ?Instructions ?Recorded ?Confirmed buprenorphine 8 mg-naloxone 2 mg 0.5 tab sublingual BI D 02/11/23 09/29/24 sublingual tablet Previous Rx's ?Medication ?Instructions ?Recorded aspirin 81 mg tablet,delayed 81 mg PO DAILY #30 tabs 1 04/13/22 release albuterol sulfate 90 mcg/actuation 2 puff inhalation Q 6H PRN 12/31/23 aerosol inhaler shortness of breath or wheez ing #8.5 grams bupropion HCl 150 mg 24 hr tablet, 150 mg PO QAM #90 t abs 12/31/23 extended release (Wellbutrin XL) fluoxetine 40 mg capsule 40 mg PO DAILY #90 caps 12/13 11/05 doxepin 25 mg capsule 25 mg PO DAILY #90 caps 04/15 05/09 zolpidem 5 mg tablet 5 mg PO .at bedtime PRN inso mnia 08/23/24 #30 tabs amoxicillin 875 mg-potassium 1 tab PO BID 7 days #14 t abs 09/29/24 clavulanate 125 mg tablet ondansetron 8 mg disintegrating 8 mg PO Q6H #14 tabs 0 11/21/24 tablet Allergies Allergy/AdvReac Type Severity Reaction Status Date / Time No Known Allergies Allergy Verified 09/29/24 10:44 Review of Systems 2 Narrative: Constitutional symptoms: Negative except as documented in HPI. Skin symptoms: Negative except as documented in HPI. Eye symptoms: Negative except as documented in HPI. ENMT symptoms: Negative except as documented in HPI. Respiratory symptoms: Negative except as documented in HPI. Cardiovascular symptoms: Negative except as documented in HPI. Gastrointestinal symptoms: Negative except as documented in HPI. Genitourinary symptoms: Negative except as documented in HPI. Musculoskeletal symptoms: Negative except as documented in HPI. Neurologic symptoms: Negative except as documented in HPI. Psychiatric symptoms: Negative except as documented in HPI. Endocrine symptoms: Negative except as documented in HPI. [facility] ED 2 PFSH: Family History Father Hypertension Social History Smoking and tobacco/nicotine status: never used tobacco/nicotine Alcohol intake: former Year of sobriety/quit date alcohol: 1 Substance/Drug Use: former Adopted: No Lives independently: No Marital status: Life Partner Number of children: 3 service: No Current occupational status: unemployed Current occupational exposures/hazards: No Do you think of yourself as: Straight/Heterosexual Current gender identity: Female Female Reproductive History: Spontaneous abortions: No Physical Exam 2 Narrative: EXAM NARRATIVE: General: Alert, no acute distress. Skin: Warm, dry. Head: Normocephalic, atraumatic. Neck: Supple, trachea midline. Eye: Extraocular movements are intact. Ears, nose, mouth and throat: mucosa moist. Cardiovascular: Regular, Normal peripheral perfusion. Respiratory: Lungs are clear to auscultation, respirations are non-labored, breath sounds are equal, Symmetrical chest wall expansion. Gastrointestinal: Soft, Nontender, Non distended Musculoskeletal: Normal ROM, no deformity. Neurological: Alert and oriented, No focal neurological deficit observed. Psychiatric: Cooperative, appropriate mood & affect. Course 2 Vital Signs: Vital signs: Vital Signs Temperature 98.2 F 11/21/24 17:20 Pulse Rate 73 11/21/24 18:22 Respiratory Rate 16 11/21/24 17:20 Blood Pressure 125/79 11/21/24 18:22 Pulse Oximetry 94 11/21/24 18:22 Oxygen Delivery Me thod Room Air 11/21/24 17:20 MDM - Abdominal Pain Medical Decision Making Medical decision making: Differential diagnosis including but not limited to and based on the above HPI, review of systems and physical exam: In this patient with diarrhea and abdominal pain would have concern for viral gastroenteritis, C. difficile, also have concern for renal failure. Urinary tract infection. Orders placed to evaluate differential diagnosis based on the above differential, HPI and physical exam Lab Review: Laboratory results were reviewed and interpreted by myself the emergency room physician. No leukocytosis. No anemia. No renal failure. Lipase is negative. I reviewed the patient's medical record. Reexamination: Patient has remained stable. Normal vitals. No nausea or vomiting while she has been here. We discussed that this is likely a viral illness and may be somewhat prolonged sometimes. She has no signs of GI bleeding. No renal failure. Assessment and plan: Gastroenteritis - Discharged home - Discussed plan with patient. Answered any questions. - Evaluation and treatment of this problem were appropriate in the emergency setting. Lab Data 11/21/24 17:27 11/21/24 17:27 Labs/Radiology: Laboratory Results WBC 7.41 10^3/uL (3.29-11.43) 11/21/24 17:27 RBC 4.66 10^6/uL (3.85-5.65) 11/21/24 17:27 Hgb 14.00 g/dL (11.27-16.99) 11/21/24 17: Hct 42.9 % (36-47) 11/21/24 17: MCV 92.1 fl (85-98) 11/21/24 17:27 MCH 30.0 pg (27-33) 11/21/24 17: MCHC 32.6 g/dL (30-55) 11/21/24 17:27 RDW 12.9 % (12.1-15.1) 11/21/24 17: Plt Count 342 10^3/cmm (157-399) 11/21/24 17:27 MPV 8.6 fL (7.4-10.4) 11/21/24 17:27 Neut % (Auto) 58.8 % 11/21/24 17:27 Lymph % (Auto) 32.5 % 11/21/24 17:27 Coleman % (Auto) 6.5 % 11/21/24 17:27 Eos % (Auto) 1.6 % 11/21/24 17:27 Baso % (Auto) 0.5 % 11/21/24 17:27 Neut # (Auto) 4.35 10^3/uL (1.8-7.7) 11/21/24 17:27 Lymph # (Auto) 2.4 10^3/uL (0.8-4.8) 11/21/24 17:27 Coleman # (Auto) 0.5 10^3/uL (0.2-0.9) 11/21/24 17:27 Eos # (Auto) 0.1 10^3/uL (0.0-0.8) 11/21/24 17:27 Baso # (Auto) 0.0 10^3/uL (0.0-0.1) 11/21/24 17:27 Nucleated RBC % (auto) 0 % 11/21/24 17:27 Nucleated RBCs # 0.0 /100WBC 11/21/24 17:27 Sodium 140 mmol/L (136-145) 11/21/24 17:27 Potassium 3.6 mmol/L (3.5-5.1) 11/21/24 17:27 Chloride 107 mmol/L (98-107) 11/21/24 17:27 Carbon Dioxide 25 mmol/L (22-29) 11/21/24 17:27 Anion Gap 11.6 (5-19) 11/21/24 17:27 BUN 10 mg/dL (6-20) 11/21/24 17:27 Creatinine 0.7 mg/dL (0.5-0.9) 11/21/24 17:27 GFR Calculation 89.7 mL/min (90-130) L 11/21/24 17:27 Glucose 94 mg/dL (65-115) 11/21/24 17:27 Calculated Osmolality 289 mOsm/kg (285-295) 11/21/24 17:27 Lactic Acid 1.0 mmol/L (0.5-2.2) 11/21/24 17:27 Calcium 8.6 mg/dL (8.5-10.5) 11/21/24 17:27 Total Bilirubin 0.5 mg/dL (0.15-1.2) 11/21/24 17:27 AST 16 U/L (0-32) 11/21/24 17:27 ALT 30 U/L (0-33) 11/21/24 17:27 Alkaline Phosphatase 81 U/L (35-105) 11/21/24 17:27 Total Protein 7.5 g/dL (6.6-8.7) 11/21/24 17:27 Albumin 4.2 g/dL (3.5-5.2) 11/21/24 17:27 Globulin 3.3 g/dL (1.3-4.6) 11/21/24 17:27 Lipase 23 U/L (13-60) 11/21/24 17:27 No radiology studies performed this visit Discharge Plan Discharge Patient Disposition: Home Clinical Impression: Gastroenteritis Condition: Stable Prescriptions: New ondansetron 8 mg tablet,disintegrating 8 mg PO Q6H Qty: 14 0RF Rx Instructions: Take 1/2-1 tab every 6 hours as needed for nausea and vomiting No Action amoxicillin-pot clavulanate 875-125 mg tablet 1 tab PO BID 7 Days Qty: 14 0RF albuterol sulfate 90 mcg/actuation HFA aerosol inhaler 2 puff inhalation Q6H PRN (Reason: shortness of breath or wheezing) Qty: 8.5 6RF bupropion HCl [Wellbutrin XL] 150 mg tablet extended release 24 hr 150 mg PO QAM Qty: 90 3RF fluoxetine 40 mg capsule 40 mg PO DAILY Qty: 90 3RF doxepin 25 mg capsule 25 mg PO DAILY Qty: 90 1RF zolpidem 5 mg tablet 5 mg PO .at bedtime PRN (Reason: insomnia) Qty: 30 5RF Suboxone 8-2 mg Tablet, Sublingual 0.5 tab SUBLINGUAL BID aspirin 81 mg tablet,delayed release (DR/EC) 81 mg PO DAILY Qty: 30 0RF Discharge Orders: Discharge ED (Routine); Ordered 11/21/24 Ordered By: Joan Johnson Referrals: Zenon Jimenez DO [Primary Care Provider, Family Practice] Discharge Diet: Advance as tolerated Patient Instructions: Gastroenteritis (ED), Opioid Safety, Pain Management, Patient Portal & Juanito Instructions Activity Restrictions/Additional Instructions: Thank you for choosing [facility] for your healthcare needs today. You have been screened and evaluated and felt safe for discharge. Health conditions do change or evolve sometimes and as such it is important that you follow up with your Primary Doctor to be re checked, 3-5 days is a general good time frame for follow up. You are always welcome to return to the ED for re assessment if your symptoms are worsening or you have new concerns Stand Alone Forms: Work/School Release Print Language: Swedish Coding Level of Care Code ED Manager [employer]
[2024-11-21 17:53] LABS: Alanine Aminotransferase 30 U/L (0-33); Albumin Level 4.2 g/dL (3.5-5.2); Alkaline Phosphatase 81 U/L (35-105); Anion Gap 11.6 (5-19); Aspartate Amino Transferase 16 U/L (0-32); Blood Urea Nitrogen 10 mg/dL (6-20); Calcium 8.6 mg/dL (8.5-10.5); Carbon Dioxide 25 mmol/L (22-29); Chloride 107 mmol/L (98-107); Creatinine Clr Calc Pharmacy 119.8950; Globulin 3.3 g/dL (1.3-4.6); Glucose 94 mg/dL (65-115); Lipase 23 U/L (13-60); Osmolality Calculated 289 mOsm/kg (285-295); Potassium 3.6 mmol/L (3.5-5.1); Sodium 140 mmol/L (136-145); Total Protein 7.5 g/dL (6.6-8.7)
[2024-11-21 17:56] LABS: Lactic Sepsis W/Reflex 1.0 mmol/L (0.5-2.2)
[2024-11-21 18:22] VITALS: BP 125/79; PULSE 73; O2SAT 94
== END 2024-11-21 18:23 | disposition home or self-care (01) ==
PROVIDERS: Emergency Provider Emergency Medicine; PCP Family Medicine
DX: K52.9 Noninfective gastroenteritis and colitis, unspecified (principal); Z79.82 Long term (current) use of aspirin
CPT/HCPCS: 36415; 80053; 83605; 83690; 85025; 99283

== ENCOUNTER → 2025-02-21 07:45 | Outpatient (BNVA) | payer MEDICAID, SELFPAY | PROVIDERS: PCP Family Medicine; Visit Provider Family Medicine | DX: E55.9 Vitamin D deficiency, unspecified (principal); F41.8 Other specified anxiety disorders; J45.20 Mild intermittent asthma, uncomplicated; F51.01 Primary insomnia; R06.09 Other forms of dyspnea; R79.89 Other specified abnormal findings of blood chemistry | CPT/HCPCS: 80053; 80061; 82306; 82607; 84443; 85025 ==